=== PATIENT | male | born 1960 | race African-American/Black ===

== ENCOUNTER 2017-02-20 03:04 | Inpatient (IN) | payer MEDICARE, MEDICAID ==
[~2017-02-20] VITALS: Ht 121.9 cm; Wt 97.6 kg
[~2017-02-20 03:04] MED LIST: ASPI81CH43 PO; B-CO-6; BACL10TA; CALC667C; CAR3125T PO; DOCU-137; ENAL-3; HYDR2TAB58 PO; LEVAAER4; LORA2TAB10 PO; OMEP20TA34; PROVENTIL INH; SEVE800T8 PO; SIMV20TA90 PO; THEO300T5 PO; TIZANDINE PO
[2017-02-20] MEDS ORDERED: BACLOFEN 10 MG TAB PO PRN (09:15)
[2017-02-20] MEDS ORDERED: ALBUTEROL SULF 2.5 MG/0.5ML(0.5%) NEB SOLN NEB PRN (09:15)
[2017-02-20] MEDS ORDERED: DEXTROSE (50%) 50ML SYRG IV PRN (09:15)
[2017-02-20] MEDS ORDERED: ACETAMINOPHEN 500 MG TAB PO PRN (09:15)
[2017-02-20] MEDS ORDERED: NITROGLYCERIN 0.4 MG SL TAB SL PRN (09:15)
[2017-02-20] MEDS ORDERED: HYDROmorphone HCL 2 MG TAB PO PRN (09:15)
[2017-02-20] MEDS ORDERED: PROMETHAZINE HCL 25 MG/ML 1ML IV PRN (09:15)
[2017-02-20] MEDS ORDERED: MORPHINE SULF INJ 2 MG/ML SYRINGE 1ML IV PRN ×2 (09:15)
[2017-02-20] MEDS ORDERED: TEMAZEPAM 15 MG CAP PO PRN (09:15)
[2017-02-20] MEDS ORDERED: MORPHINE SULFATE 4 MG/ML SYR/VIAL IV PRN (09:15)
[2017-02-20] MEDS ORDERED: MORPHINE SULFATE 10 MG/ML INJ 1ML SDV IV PRN (09:45)
[2017-02-20] MEDS ORDERED: ENALAPRIL MALEATE 2.5 MG TAB PO SCH (10:00)
[2017-02-20] MEDS: ASPirin 81 mg TAB PO SCH ×2 (10:00→10:30)
[2017-02-20] MEDS: DOCUSATE SOD 100 MG CAP PO SCH ×2 (10:00→22:08)
[2017-02-20] MEDS: THEOPHYLLINE 300 MG PO SCH ×2 (10:00→22:00)
[2017-02-20] MEDS ORDERED: PATIENTS OWN MEDICATION (Sevelamer Carbonate (Renvela) 800 MG) PO SCH (10:00)
[2017-02-20 10:01] LABS: Hematocrit 24.7 % (41.0-53.0); Hemoglobin 7.7 g/dL (13.5-17.5); Mean Corpuscular Hemoglobin 30.2 pg (28.0-32.0); Mean Corpuscular Hgb Conc. 31.2 g/dL (32.0-36.0); Mean Corpuscular Volume 96.8 fL (80.0-100.0); Platelet Count (auto) 164 10^3/uL (140-450); Red Blood Cells 2.55 10^6/uL (4.5-5.90); Red Cell Distribution Width 18.3 % (11.8-14.3); White Blood Cell 5.1 10^3/uL (4.4-10.8)
[2017-02-20 10:06] LABS: Band Neutrophils % (manual) 0; Basophils % (manual) 0 (0.0-2.0); Blast Cells 0; Metamyelocytes % 0; Myelocytes % 0; Promyelocytes % 0; Reactive Lymphocytes 0
[2017-02-20] MEDS: PANTOPRAZOLE 40 MG TAB PO SCH (10:30)
[2017-02-20] MEDS: CARVEDILOL 3.125 MG TAB PO SCH ×2 (10:30→22:09)
[2017-02-20] MEDS: FUROSEMIDE 40 MG/4 ML VIAL IV SCH (10:30)
[2017-02-20] MEDS: SEVELAMER 800 MG TAB PO SCH (10:30)
[2017-02-20 10:38] LABS: Albumin 2.8 g/dL (3.4-5.0); BUN/Creatinine Ratio 5.1; Bilirubin, Total 1.1 mg/dL (0.2-1.0); Calcium 8.3 mg/dL (8.5-10.1); Magnesium 2.9 mg/dL (1.6-2.6); Potassium 3.8 mmol/L (3.5-5.1); Total Protein 8.9 g/dL (6.4-8.2)
[2017-02-20] MEDS: ACCU-CHEK COMFORT CURVE STRIP VI SCH ×3 (11:06→22:09)
[2017-02-20 11:08] LABS: Eosinophils % (manual) 3 (0-7); Lymphocytes % (manual) 15 (10.0-50.0); Monocytes % (manual) 10 (0-12)
[2017-02-20 11:09] LABS: INR 1.51 (0.9-1.15); Partial Thromboplastin Time 35.2 sec (22.64-33.71); Prothrombin Time 16.5 sec (9.37-12.3)
[2017-02-20] MEDS: InsuLIN REG 1unit/0.01ml Soln (100units/ml) SC SCH ×3 (11:30→22:10)
[2017-02-20] MEDS: CALCIUM ACETATE 667 MG CAP PO SCH ×2 (12:01→17:49)
[2017-02-20] MEDS: ALBUTEROL SULF 2.5 MG/0.5ML(0.5%) NEB SOLN NEB SCH ×2 (12:50→19:17)
[2017-02-20 13:16] LABS: Folate (Folic Acid) 12.89 ng/mL (5.38-24)
[2017-02-20 13:28] VITALS: BP 85/50
[2017-02-20] MEDS: TIZANIDINE PO SCH ×2 (14:00→22:00)
[2017-02-20] MEDS: [UNRECOGNIZED DRUG - OTHER] PO SCH ×2 (14:00→22:00)
[2017-02-20] MEDS ORDERED: AMOX-263 PO (18:08)
[2017-02-20] MEDS ORDERED: GABA300C10 PO (18:08)
[2017-02-20 18:16] VITALS: BP 110/60
[2017-02-20] MEDS: LORazepam 0.5 MG TAB PO PRN (18:30)
[2017-02-20 18:42] VITALS: BP 125/72
[2017-02-20 22:00] VITALS: BP 112/59
[2017-02-20] MEDS: ATORVASTATIN 20 MG TAB PO SCH (22:09)
[2017-02-20 22:10] VITALS: BP 107/67
[2017-02-21] MEDS: ALBUTEROL SULF 2.5 MG/0.5ML(0.5%) NEB SOLN NEB SCH ×4 (00:01→19:52)
[2017-02-21] MEDS: LORazepam 0.5 MG TAB PO PRN (00:16)
[2017-02-21 05:00] VITALS: BP 96/57
[2017-02-21 05:27] LABS: Basophils # (auto) 0.1 uL; Monocytes # (auto) 0.7 uL
[2017-02-21 05:29] LABS: Basophils % (auto) 2.5 % (0.0-2.0); Eosinophils # (auto) 0.1 uL; Eosinophils % (auto) 2.7 % (0.0-7.0); Hematocrit 23.8 % (41.0-53.0); Hemoglobin 7.8 g/dL (13.5-17.5); Lymphocytes # (auto) 0.8 uL; Lymphocytes % (auto) 14.2 % (10.0-50.0); Mean Corpuscular Hemoglobin 30.3 pg (28.0-32.0); Mean Corpuscular Hgb Conc. 32.9 g/dL (32.0-36.0); Mean Corpuscular Volume 92.3 fL (80.0-100.0); Monocytes % (auto) 11.9 % (0.0-12.0); Neutrophils # (auto) 3.8 uL; Neutrophils % (auto) 68.7 % (37.0-80.0); Platelet Count (auto) 159 10^3/uL (140-450); Red Blood Cells 2.58 10^6/uL (4.5-5.90); Red Cell Distribution Width 18.8 % (11.8-14.3); White Blood Cell 5.5 10^3/uL (4.4-10.8)
[2017-02-21] MEDS: [UNRECOGNIZED DRUG - OTHER] PO SCH ×3 (05:34→22:00)
[2017-02-21] MEDS: TIZANIDINE PO SCH ×3 (05:34→22:00)
[2017-02-21 05:50] LABS: Albumin 2.7 g/dL (3.4-5.0); BUN/Creatinine Ratio 5.2; Calcium 8.2 mg/dL (8.5-10.1); Potassium 4.3 mmol/L (3.5-5.1); Total Protein 8.7 g/dL (6.4-8.2)
[2017-02-21] MEDS: InsuLIN REG 1unit/0.01ml Soln (100units/ml) SC SCH ×4 (06:35→22:00)
[2017-02-21] MEDS: ACCU-CHEK COMFORT CURVE STRIP VI SCH ×4 (06:36→22:00)
[2017-02-21 08:00] VITALS: BP 93/54
[2017-02-21] MEDS: CALCIUM ACETATE 667 MG CAP PO SCH ×3 (08:00→18:22)
[2017-02-21] MEDS ORDERED: SODIUM CHL 0.9% 1000 ML BAG XX ONE (08:45)
[2017-02-21] MEDS ORDERED: EPOETIN ALFA 10,000 UNIT/1 ML VIAL IV ONE (08:45)
[2017-02-21 09:59] LABS: Albumin 2.7 g/dL (3.4-5.0); Bilirubin, Direct 0.5 mg/dL (0-0.2); Total Protein 8.7 g/dL (6.4-8.2)
[2017-02-21] MEDS: ASPirin 81 mg TAB PO SCH (10:00)
[2017-02-21] MEDS: FUROSEMIDE 40 MG/4 ML VIAL IV SCH (10:00)
[2017-02-21] MEDS: DOCUSATE SOD 100 MG CAP PO SCH ×2 (10:00→22:45)
[2017-02-21] MEDS: THEOPHYLLINE 300 MG PO SCH ×2 (10:00→22:00)
[2017-02-21] MEDS: CARVEDILOL 3.125 MG TAB PO SCH ×2 (10:00→22:46)
[2017-02-21] MEDS: PANTOPRAZOLE 40 MG TAB PO SCH (12:04)
[2017-02-21] MEDS: SEVELAMER 800 MG TAB PO SCH (12:04)
[2017-02-21 13:00] VITALS: BP 106/60
[2017-02-21 17:00] VITALS: BP 98/35
[2017-02-21] MEDS: B-COMPLEX W/ C & FOLIC ACID(NEPHROVITE TAB) PO SCH (18:21)
[2017-02-21 20:00] VITALS: BP 118/68
[2017-02-21] MEDS: HYDROmorphone HCL 2 MG/ML VL IV PRN (21:10)
[2017-02-21] MEDS: ASCORBIC ACID 500 MG TAB PO SCH (22:45)
[2017-02-21] MEDS: ATORVASTATIN 20 MG TAB PO SCH (22:45)
[2017-02-22] MEDS: HYDROmorphone HCL 2 MG/ML VL IV PRN ×4 (01:10→22:13)
[2017-02-22] MEDS: ALBUTEROL SULF 2.5 MG/0.5ML(0.5%) NEB SOLN NEB SCH ×4 (01:14→19:42)
[2017-02-22 04:58] VITALS: BP 94/65
[2017-02-22] MEDS: [UNRECOGNIZED DRUG - OTHER] PO SCH ×3 (06:00→22:00)
[2017-02-22] MEDS: TIZANIDINE PO SCH ×3 (06:00→22:00)
[2017-02-22] MEDS: InsuLIN REG 1unit/0.01ml Soln (100units/ml) SC SCH ×4 (07:00→22:00)
[2017-02-22] MEDS: ACCU-CHEK COMFORT CURVE STRIP VI SCH ×4 (07:16→22:00)
[2017-02-22] MEDS: CALCIUM ACETATE 667 MG CAP PO SCH ×3 (08:00→17:56)
[2017-02-22 09:00] VITALS: BP 103/52
[2017-02-22] MEDS: FUROSEMIDE 40 MG/4 ML VIAL IV SCH (10:00)
[2017-02-22] MEDS: THEOPHYLLINE 300 MG PO SCH ×2 (10:00→22:00)
[2017-02-22] MEDS: CARVEDILOL 3.125 MG TAB PO SCH ×2 (10:00→22:00)
[2017-02-22] MEDS: DOCUSATE SOD 100 MG CAP PO SCH ×2 (11:53→22:13)
[2017-02-22] MEDS: ASPirin 81 mg TAB PO SCH (11:53)
[2017-02-22] MEDS: B-COMPLEX W/ C & FOLIC ACID(NEPHROVITE TAB) PO SCH (11:54)
[2017-02-22] MEDS: PANTOPRAZOLE 40 MG TAB PO SCH (11:54)
[2017-02-22] MEDS: SEVELAMER 800 MG TAB PO SCH (11:55)
[2017-02-22] MEDS: ASCORBIC ACID 500 MG TAB PO SCH ×2 (11:55→22:13)
[2017-02-22 13:00] VITALS: BP 79/43
[2017-02-22 18:22] VITALS: BP 95/62
[2017-02-22 20:00] VITALS: BP 93/53
[2017-02-22 22:00] VITALS: BP 93/53
[2017-02-22] MEDS: ATORVASTATIN 20 MG TAB PO SCH (22:13)
[2017-02-23] VITALS (9 sets, daily range): BP systolic 77–117; BP diastolic 47–70
[2017-02-23] MEDS: ALBUTEROL SULF 2.5 MG/0.5ML(0.5%) NEB SOLN NEB SCH ×4 (00:22→19:11)
[2017-02-23] MEDS: HYDROmorphone HCL 2 MG/ML VL IV PRN ×6 (02:01→23:31)
[2017-02-23] MEDS: [UNRECOGNIZED DRUG - OTHER] PO SCH ×3 (06:00→22:00)
[2017-02-23] MEDS: TIZANIDINE PO SCH ×3 (06:00→22:00)
[2017-02-23] MEDS: InsuLIN REG 1unit/0.01ml Soln (100units/ml) SC SCH ×4 (07:00→22:00)
[2017-02-23] MEDS: ACCU-CHEK COMFORT CURVE STRIP VI SCH ×4 (07:00→22:00)
[2017-02-23] MEDS: CALCIUM ACETATE 667 MG CAP PO SCH ×3 (09:29→18:29)
[2017-02-23] MEDS ORDERED: ADENOSINE 78 MG in GIVE UN-DILUTED 0 ML IV ONE (09:45)
[2017-02-23] MEDS: THEOPHYLLINE 300 MG PO SCH ×2 (10:00→22:00)
[2017-02-23] MEDS: CARVEDILOL 3.125 MG TAB PO SCH ×2 (10:00→22:00)
[2017-02-23] MEDS: FUROSEMIDE 40 MG/4 ML VIAL IV SCH (10:00)
[2017-02-23] MEDS: DOCUSATE SOD 100 MG CAP PO SCH ×2 (10:00→22:51)
[2017-02-23] MEDS: SEVELAMER 800 MG TAB PO SCH (14:17)
[2017-02-23] MEDS: ASPirin 81 mg TAB PO SCH (14:18)
[2017-02-23] MEDS: PANTOPRAZOLE 40 MG TAB PO SCH (14:18)
[2017-02-23] MEDS: ASCORBIC ACID 500 MG TAB PO SCH ×2 (14:18→22:51)
[2017-02-23] MEDS: B-COMPLEX W/ C & FOLIC ACID(NEPHROVITE TAB) PO SCH (14:23)
[2017-02-23] MEDS ORDERED: diphenhdrAMINE HCL 50 MG/1 ML VL IV ONE (17:00)
[2017-02-23] MEDS: LORazepam 0.5 MG TAB PO PRN (19:58)
[2017-02-23] MEDS: diphenhdrAMINE HCL 50 MG/1 ML VL IV PRN (21:33)
[2017-02-23] MEDS: ATORVASTATIN 20 MG TAB PO SCH (22:51)
[2017-02-24] MEDS: ALBUTEROL SULF 2.5 MG/0.5ML(0.5%) NEB SOLN NEB SCH ×4 (00:31→18:00)
[2017-02-24] MEDS: HYDROmorphone HCL 2 MG/ML VL IV PRN ×3 (04:29→20:45)
[2017-02-24 05:07] VITALS: BP 94/58
[2017-02-24] MEDS: [UNRECOGNIZED DRUG - OTHER] PO SCH ×3 (06:00→22:00)
[2017-02-24] MEDS: TIZANIDINE PO SCH ×3 (06:00→22:00)
[2017-02-24] MEDS: ACCU-CHEK COMFORT CURVE STRIP VI SCH ×4 (07:00→22:20)
[2017-02-24] MEDS: InsuLIN REG 1unit/0.01ml Soln (100units/ml) SC SCH ×4 (07:00→22:00)
[2017-02-24 08:00] VITALS: BP 90/60
[2017-02-24 08:50] VITALS: BP 90/59
[2017-02-24] MEDS: CALCIUM ACETATE 667 MG CAP PO SCH ×3 (09:13→18:00)
[2017-02-24] MEDS: THEOPHYLLINE 300 MG PO SCH ×2 (10:00→22:00)
[2017-02-24] MEDS: CARVEDILOL 3.125 MG TAB PO SCH ×2 (10:00→22:19)
[2017-02-24] MEDS: B-COMPLEX W/ C & FOLIC ACID(NEPHROVITE TAB) PO SCH (10:47)
[2017-02-24] MEDS: SEVELAMER 800 MG TAB PO SCH (10:47)
[2017-02-24] MEDS: PANTOPRAZOLE 40 MG TAB PO SCH (10:48)
[2017-02-24] MEDS: DOCUSATE SOD 100 MG CAP PO SCH ×2 (10:48→22:00)
[2017-02-24] MEDS: ASCORBIC ACID 500 MG TAB PO SCH ×2 (10:48→22:20)
[2017-02-24] MEDS: ASPirin 81 mg TAB PO SCH (10:48)
[2017-02-24] MEDS: FUROSEMIDE 40 MG/4 ML VIAL IV SCH (10:49)
[2017-02-24] MEDS ORDERED: EPOETIN ALFA 10,000 UNIT/1 ML VIAL IV ONE (12:00)
[2017-02-24] MEDS ORDERED: SODIUM CHL 0.9% 1000 ML BAG XX ONE (12:00)
[2017-02-24 13:00] VITALS: BP 116/70
[2017-02-24 17:00] VITALS: BP 113/74
[2017-02-24 22:00] VITALS: BP 97/64
[2017-02-24] MEDS: ATORVASTATIN 20 MG TAB PO SCH (22:19)
[2017-02-25] MEDS: ALBUTEROL SULF 2.5 MG/0.5ML(0.5%) NEB SOLN NEB SCH ×4 (00:39→19:39)
[2017-02-25] MEDS: HYDROmorphone HCL 2 MG/ML VL IV PRN ×5 (01:09→22:31)
[2017-02-25 05:00] VITALS: BP 103/61
[2017-02-25] MEDS: [UNRECOGNIZED DRUG - OTHER] PO SCH ×3 (05:23→22:00)
[2017-02-25] MEDS: TIZANIDINE PO SCH ×3 (05:23→22:00)
[2017-02-25] MEDS: InsuLIN REG 1unit/0.01ml Soln (100units/ml) SC SCH ×4 (05:24→22:00)
[2017-02-25] MEDS: ACCU-CHEK COMFORT CURVE STRIP VI SCH ×4 (05:24→22:31)
[2017-02-25 08:00] VITALS: BP 86/53
[2017-02-25] MEDS: CALCIUM ACETATE 667 MG CAP PO SCH ×3 (08:07→19:36)
[2017-02-25 09:00] VITALS: BP 87/55
[2017-02-25] MEDS: DOCUSATE SOD 100 MG CAP PO SCH ×2 (10:00→22:30)
[2017-02-25] MEDS: THEOPHYLLINE 300 MG PO SCH ×2 (10:00→22:00)
[2017-02-25] MEDS: SEVELAMER 800 MG TAB PO SCH (10:44)
[2017-02-25] MEDS: ASPirin 81 mg TAB PO SCH (10:44)
[2017-02-25] MEDS: ASCORBIC ACID 500 MG TAB PO SCH ×2 (10:44→22:31)
[2017-02-25] MEDS: B-COMPLEX W/ C & FOLIC ACID(NEPHROVITE TAB) PO SCH (10:44)
[2017-02-25] MEDS: PANTOPRAZOLE 40 MG TAB PO SCH (10:44)
[2017-02-25] MEDS: FUROSEMIDE 40 MG/4 ML VIAL IV SCH (10:47)
[2017-02-25] MEDS: CARVEDILOL 3.125 MG TAB PO SCH ×2 (10:53→22:00)
[2017-02-25 13:00] VITALS: BP 111/62
[2017-02-25 16:31] VITALS: BP 103/64
[2017-02-25] MEDS ORDERED: EPOETIN ALFA 10,000 UNIT/1 ML VIAL IV ONE (17:45)
[2017-02-25] MEDS ORDERED: SODIUM CHL 0.9% 1000 ML BAG XX ONE (17:45)
[2017-02-25] MEDS ORDERED: traMADol HCL 50 MG TAB PO PRN (18:15)
[2017-02-25 22:00] VITALS: BP 117/68
[2017-02-25] MEDS: ATORVASTATIN 20 MG TAB PO SCH (22:30)
[2017-02-26] VITALS (7 sets, daily range): BP systolic 87–117; BP diastolic 53–69
[2017-02-26] MEDS: ALBUTEROL SULF 2.5 MG/0.5ML(0.5%) NEB SOLN NEB SCH ×3 (01:03→20:54)
[2017-02-26] MEDS: HYDROmorphone HCL 2 MG/ML VL IV PRN ×4 (02:41→19:47)
[2017-02-26] MEDS: [UNRECOGNIZED DRUG - OTHER] PO SCH ×3 (06:00→22:00)
[2017-02-26] MEDS: TIZANIDINE PO SCH ×3 (06:00→22:00)
[2017-02-26] MEDS: InsuLIN REG 1unit/0.01ml Soln (100units/ml) SC SCH ×4 (06:09→22:00)
[2017-02-26] MEDS: ACCU-CHEK COMFORT CURVE STRIP VI SCH ×4 (06:10→22:19)
[2017-02-26] MEDS: CALCIUM ACETATE 667 MG CAP PO SCH ×3 (08:19→17:55)
[2017-02-26] MEDS: CARVEDILOL 3.125 MG TAB PO SCH ×2 (10:00→22:00)
[2017-02-26] MEDS: THEOPHYLLINE 300 MG PO SCH ×2 (10:00→22:00)
[2017-02-26] MEDS: FUROSEMIDE 40 MG/4 ML VIAL IV SCH (10:00)
[2017-02-26] MEDS ORDERED: ALBUMIN 25% 100 ML IV PRN (10:45)
[2017-02-26] MEDS: B-COMPLEX W/ C & FOLIC ACID(NEPHROVITE TAB) PO SCH (15:51)
[2017-02-26] MEDS: SEVELAMER 800 MG TAB PO SCH (15:51)
[2017-02-26] MEDS: PANTOPRAZOLE 40 MG TAB PO SCH (15:51)
[2017-02-26] MEDS: ASCORBIC ACID 500 MG TAB PO SCH ×2 (15:52→22:18)
[2017-02-26] MEDS: ASPirin 81 mg TAB PO SCH (15:54)
[2017-02-26] MEDS: DOCUSATE SOD 100 MG CAP PO SCH ×2 (15:56→22:00)
[2017-02-26] MEDS: ATORVASTATIN 20 MG TAB PO SCH (22:18)
[2017-02-26] MEDS: diphenhdrAMINE HCL 50 MG/1 ML VL IV PRN (22:56)
[2017-02-27] MEDS: HYDROmorphone HCL 2 MG/ML VL IV PRN ×4 (00:03→13:20)
[2017-02-27] MEDS: ALBUTEROL SULF 2.5 MG/0.5ML(0.5%) NEB SOLN NEB SCH ×3 (01:34→11:59)
[2017-02-27] MEDS: [UNRECOGNIZED DRUG - OTHER] PO SCH ×2 (05:33→14:00)
[2017-02-27] MEDS: TIZANIDINE PO SCH ×2 (05:33→14:00)
[2017-02-27 05:42] VITALS: BP 101/64
[2017-02-27] MEDS: InsuLIN REG 1unit/0.01ml Soln (100units/ml) SC SCH ×3 (05:58→17:00)
[2017-02-27] MEDS: ACCU-CHEK COMFORT CURVE STRIP VI SCH ×3 (05:59→17:00)
[2017-02-27] MEDS: SEVELAMER 800 MG TAB PO SCH (08:54)
[2017-02-27] MEDS: FUROSEMIDE 40 MG/4 ML VIAL IV SCH (08:54)
[2017-02-27] MEDS: THEOPHYLLINE 300 MG PO SCH (08:54)
[2017-02-27] MEDS: CALCIUM ACETATE 667 MG CAP PO SCH ×2 (08:54→11:45)
[2017-02-27] MEDS: PANTOPRAZOLE 40 MG TAB PO SCH (08:54)
[2017-02-27] MEDS: ASCORBIC ACID 500 MG TAB PO SCH (08:54)
[2017-02-27] MEDS: ASPirin 81 mg TAB PO SCH (08:55)
[2017-02-27] MEDS: CARVEDILOL 3.125 MG TAB PO SCH (08:55)
[2017-02-27] MEDS: DOCUSATE SOD 100 MG CAP PO SCH (08:55)
[2017-02-27 09:00] VITALS: BP 96/52
[2017-02-27] MEDS: B-COMPLEX W/ C & FOLIC ACID(NEPHROVITE TAB) PO SCH (09:16)
[2017-02-27 13:00] VITALS: BP 101/66
[2017-02-27 17:53] VITALS: BP 121/71
[2017-02-28] MEDS ORDERED: SODIUM CHL 0.9% 1000 ML BAG XX ONE (08:00)
[2017-02-28] MEDS ORDERED: EPOETIN ALFA 10,000 UNIT/1 ML VIAL IV ONE (08:00)
== END 2017-02-27 18:05 | disposition home or self-care (01) | DRG 291 ==
LOC: ER 03:04 → EDBD 03:04 → TELE 03:05 → TELE-WESTW 17:24
PROVIDERS: ADMIT Internal Medicine; ATTEND Internal Medicine Pulmonary Disease
PROC: 30233N1 Transfusion of Nonautologous Red Blood Cells into Peripheral Vein, Percutaneous Approach (ICD-10-PCS; 2017-02-20)
PROC: 5A09357 Assistance with Respiratory Ventilation, Less than 24 Consecutive Hours, Continuous Positive Airway Pressure (ICD-10-PCS; principal; 2017-02-21)
PROC: 5A1D70Z Performance of Urinary Filtration, Intermittent, Less than 6 Hours Per Day (ICD-10-PCS; 2017-02-21)
PROC: 5A09357 Assistance with Respiratory Ventilation, Less than 24 Consecutive Hours, Continuous Positive Airway Pressure (ICD-10-PCS; 2017-02-22)
PROC: 5A09357 Assistance with Respiratory Ventilation, Less than 24 Consecutive Hours, Continuous Positive Airway Pressure (ICD-10-PCS; 2017-02-23)
PROC: 5A1D70Z Performance of Urinary Filtration, Intermittent, Less than 6 Hours Per Day (ICD-10-PCS; 2017-02-24)
PROC: 5A09357 Assistance with Respiratory Ventilation, Less than 24 Consecutive Hours, Continuous Positive Airway Pressure (ICD-10-PCS; 2017-02-25)
PROC: 5A09357 Assistance with Respiratory Ventilation, Less than 24 Consecutive Hours, Continuous Positive Airway Pressure (ICD-10-PCS; 2017-02-26)
PROC: 5A1D70Z Performance of Urinary Filtration, Intermittent, Less than 6 Hours Per Day (ICD-10-PCS; 2017-02-26)
PROC: 5A09357 Assistance with Respiratory Ventilation, Less than 24 Consecutive Hours, Continuous Positive Airway Pressure (ICD-10-PCS; 2017-02-27)
DX: I13.2 Hypertensive heart and chronic kidney disease with heart failure and with stage 5 chronic kidney disease, or end stage renal disease (principal); N18.6 End stage renal disease; E11.22 Type 2 diabetes mellitus with diabetic chronic kidney disease; E11.40 Type 2 diabetes mellitus with diabetic neuropathy, unspecified; E46 Unspecified protein-calorie malnutrition; E87.1 Hypo-osmolality and hyponatremia; Z68.44 Body mass index [BMI] 60.0-69.9, adult; E11.51 Type 2 diabetes mellitus with diabetic peripheral angiopathy without gangrene; I50.9 Heart failure, unspecified; D64.9 Anemia, unspecified; J44.9 Chronic obstructive pulmonary disease, unspecified; E11.649 Type 2 diabetes mellitus with hypoglycemia without coma; E78.5 Hyperlipidemia, unspecified; F03.90 Unspecified dementia, unspecified severity, without behavioral disturbance, psychotic disturbance, mood disturbance, and anxiety; Z51.5 Encounter for palliative care; F17.210 Nicotine dependence, cigarettes, uncomplicated; F25.9 Schizoaffective disorder, unspecified; E66.9 Obesity, unspecified; K21.9 Gastro-esophageal reflux disease without esophagitis; F31.9 Bipolar disorder, unspecified; G47.33 Obstructive sleep apnea (adult) (pediatric); H91.90 Unspecified hearing loss, unspecified ear; I25.2 Old myocardial infarction; Z99.2 Dependence on renal dialysis; Z79.899 Other long term (current) drug therapy; Z82.49 Family history of ischemic heart disease and other diseases of the circulatory system; Z83.3 Family history of diabetes mellitus; Z89.511 Acquired absence of right leg below knee; Z89.512 Acquired absence of left leg below knee; Z89.611 Acquired absence of right leg above knee; Z90.49 Acquired absence of other specified parts of digestive tract; Z79.82 Long term (current) use of aspirin; Z88.5 Allergy status to narcotic agent
CPT/HCPCS: 36415; 70450; 71045; 78452; 80053; 80061; 80076; 82550; 82607; 82746; 82962; 83036; 83605; 83735; 83880; 84443; 84484; 85007; 85025; 85027; 85610; 85652; 85730; 86850; 86870; 86900; 86901; 86902; 86920; 86922; 87040; 87081; 87493; 90935; 93005; 93017; 93306; 93886; 94640; 94660; 94761; J0153; J0885; J1642; J1815

== ENCOUNTER 2017-08-01 21:47 | Inpatient (IN) | payer MEDICARE, MEDICAID ==
[~2017-08-01] VITALS: Ht 152.4 cm; Wt 111.5 kg
[~2017-08-01 21:47] MED LIST changes: +GABA300C10 PO
[2017-08-01] MEDS ORDERED: ACETAMINOPHEN 650 MG RECT SUPP PR ONE ×2 (22:04→23:00)
[2017-08-01 23:13] LABS: Basophils # (auto) 0 uL; Basophils % (auto) 1.1 % (0.0-2.0); Eosinophils # (auto) 0 uL; Eosinophils % (auto) 1.1 % (0.0-7.0); Hemoglobin 8.5 g/dL (13.5-17.5); Lymphocytes # (auto) 0.7 uL; Lymphocytes % (auto) 18.1 % (10.0-50.0); Mean Corpuscular Hemoglobin 33.1 pg (28.0-32.0); Mean Corpuscular Hgb Conc. 32.9 g/dL (32.0-36.0); Mean Corpuscular Volume 100.8 fL (80.0-100.0); Monocytes # (auto) 0.2 uL; Monocytes % (auto) 4.7 % (0.0-12.0); Neutrophils # (auto) 2.9 uL; Platelet Count (auto) 97 10^3/uL (140-450); Red Blood Cells 2.58 10^6/uL (4.5-5.90); Red Cell Distribution Width 16.1 % (11.8-14.3); White Blood Cell 3.9 10^3/uL (4.4-10.8)
[2017-08-01 23:22] LABS: INR 1.52 (0.9-1.15); Partial Thromboplastin Time 30.8 sec (23.78-33.04); Prothrombin Time 15.9 sec (9.27-12.13)
[2017-08-01 23:28] LABS: Alanine Aminotransferase 10 U/L (16-61); Albumin 2.8 g/dL (3.4-5.0); Alkaline Phosphatase 79 U/L (45-117); Anion Gap 11 (5-15); Aspartate Aminotransferase 26 U/L (15-37); BUN/Creatinine Ratio 3.1; Bilirubin, Total 1.7 mg/dL (0.2-1.0); Blood Alcohol < 3.0 mg/dL (0-5); Blood Urea Nitrogen 14 mg/dL (7-18); Calcium 8.2 mg/dL (8.5-10.1); Carbon Dioxide 29 mmol/L (21-32); Chloride 93 mmol/L (98-107); GFR African American 17 mL/min; GFR Non-African American 14 mL/min; Glucose 100 mg/dL (74-106); Magnesium 2.5 mg/dL (1.6-2.6); Potassium 3.5 mmol/L (3.5-5.1); Sodium 133 mmol/L (136-145); Total Protein 8.6 g/dL (6.4-8.2)
[2017-08-02] MEDS ORDERED: SODIUM CHLORIDE 0.9% 1,000 ML IV ONE (00:45)
[2017-08-02] MEDS ORDERED: ALBUTEROL SULF 2.5 MG/0.5ML(0.5%) NEB SOLN NEB PRN (05:15)
[2017-08-02] MEDS ORDERED: HYDROcodone-ACET 5/325MG TAB PO PRN (05:45)
[2017-08-02] MEDS ORDERED: DEXTROSE (50%) 50ML SYRG IV PRN (05:45)
[2017-08-02] MEDS ORDERED: LACTULOSE 20Gm/30ML SOLN PO ONE (06:00)
[2017-08-02] MEDS ORDERED: LORazepam 0.5 MG TAB PO PRN (06:15)
[2017-08-02] MEDS: IPRATROPIUM BROM 0.5 MG/2.5ML INH SOL NEB SCH ×5 (06:55→23:58)
[2017-08-02] MEDS: ALBUTEROL SULF 2.5 MG/0.5ML(0.5%) NEB SOLN NEB SCH ×4 (06:55→23:58)
[2017-08-02] MEDS: SEVELAMER 800 MG TAB PO SCH ×3 (08:00→18:00)
[2017-08-02] MEDS: ACCU-CHEK COMFORT CURVE STRIP VI SCH ×4 (08:17→22:10)
[2017-08-02] MEDS: InsuLIN REG 1unit/0.01ml Soln (100units/ml) SC SCH ×4 (08:17→22:00)
[2017-08-02 08:19] LABS: Basophils # (auto) 0 uL; Basophils % (auto) 0.8 % (0.0-2.0); Eosinophils # (auto) 0 uL; Hematocrit 24.7 % (41.0-53.0); Hemoglobin 8.1 g/dL (13.5-17.5); Lymphocytes # (auto) 0.7 uL; Lymphocytes % (auto) 15.9 % (10.0-50.0); Mean Corpuscular Hemoglobin 33.3 pg (28.0-32.0); Mean Corpuscular Hgb Conc. 32.9 g/dL (32.0-36.0); Mean Corpuscular Volume 101.4 fL (80.0-100.0); Monocytes # (auto) 0.3 uL; Monocytes % (auto) 7.1 % (0.0-12.0); Neutrophils # (auto) 3.2 uL; Neutrophils % (auto) 75.2 % (37.0-80.0); Nucleated Red Blood Cells % 0.2 %; Platelet Count (auto) 91 10^3/uL (140-450); Red Blood Cells 2.43 10^6/uL (4.5-5.90); Red Cell Distribution Width 16.6 % (11.8-14.3); White Blood Cell 4.3 10^3/uL (4.4-10.8)
[2017-08-02 08:26] LABS: Albumin 2.7 g/dL (3.4-5.0); BUN/Creatinine Ratio 3.2; Bilirubin, Total 1.7 mg/dL (0.2-1.0); Calcium 8.2 mg/dL (8.5-10.1); Potassium 3.6 mmol/L (3.5-5.1); Total Protein 8.2 g/dL (6.4-8.2)
[2017-08-02] MEDS: LEVETIRACETAM 500 MG TAB PO SCH ×2 (10:00→22:00)
[2017-08-02] MEDS: amLODIPine BESYLATE 5 MG TAB PO SCH (10:00)
[2017-08-02] MEDS: METOPROLOL SUCCINATE XL 50 MG TAB PO SCH (10:00)
[2017-08-02 10:42] VITALS: BP 86/49
[2017-08-02 11:13] VITALS: BP 86/49
[2017-08-02] MEDS: ASPirin-EC 81 mg tab PO SCH (12:09)
[2017-08-02] MEDS: GABAPENTIN 300 MG CAP PO SCH (12:10)
[2017-08-02 13:00] VITALS: BP 87/61
[2017-08-02] MEDS ORDERED: ROPI4TAB26 PO (13:42)
[2017-08-02] MEDS: ONDANSETRON HCL 4 MG/2 ML VIAL IV PRN ×2 (14:03→20:03)
[2017-08-02 17:18] VITALS: BP 95/57
[2017-08-02] MEDS ORDERED: VANCOMYCIN PER PHARMACY 0 MG IV SCH (20:00)
[2017-08-02] MEDS ORDERED: VANCOMYCIN 1GM/250ML 250 ML IV ONE (21:00)
[2017-08-02 22:00] VITALS: BP 112/59
[2017-08-02] MEDS: ATORVASTATIN 20 MG TAB PO SCH (23:31)
[2017-08-02] MEDS: PIPERACILLIN-TAZOB 2.25GM 50 ML IV SCH (23:31)
[2017-08-03] MEDS: ONDANSETRON HCL 4 MG/2 ML VIAL IV PRN ×4 (00:37→23:56)
[2017-08-03 05:00] VITALS: BP 116/79
[2017-08-03 05:56] LABS: Basophils # (auto) 0 uL; Basophils % (auto) 0.4 % (0.0-2.0); Eosinophils # (auto) 0.1 uL; Eosinophils % (auto) 1.5 % (0.0-7.0); Mean Corpuscular Hemoglobin 34.5 pg (28.0-32.0); Monocytes # (auto) 0.2 uL; Neutrophils # (auto) 2.6 uL; White Blood Cell 3.4 10^3/uL (4.4-10.8)
[2017-08-03 05:57] LABS: Hematocrit 23.5 % (41.0-53.0); Hemoglobin 7.9 g/dL (13.5-17.5); Lymphocytes # (auto) 0.4 uL; Lymphocytes % (auto) 12.5 % (10.0-50.0); Mean Corpuscular Hgb Conc. 33.8 g/dL (32.0-36.0); Mean Corpuscular Volume 102.2 fL (80.0-100.0); Monocytes % (auto) 7.4 % (0.0-12.0); Neutrophils % (auto) 78.2 % (37.0-80.0); Nucleated Red Blood Cells % 0.1 %; Platelet Count (auto) 85 10^3/uL (140-450); Red Cell Distribution Width 16.3 % (11.8-14.3)
[2017-08-03 06:30] LABS: BUN/Creatinine Ratio 3.7; Calcium 8.6 mg/dL (8.5-10.1); Potassium 3.6 mmol/L (3.5-5.1)
[2017-08-03] MEDS: InsuLIN REG 1unit/0.01ml Soln (100units/ml) SC SCH ×4 (06:37→23:26)
[2017-08-03] MEDS: ACCU-CHEK COMFORT CURVE STRIP VI SCH ×4 (06:37→23:27)
[2017-08-03] MEDS ORDERED: EPOETIN ALFA 10,000 UNIT/1 ML VIAL SC ONE ×2 (07:00→08:30)
[2017-08-03] MEDS: ALBUTEROL SULF 2.5 MG/0.5ML(0.5%) NEB SOLN NEB SCH ×4 (07:08→23:41)
[2017-08-03] MEDS: SEVELAMER 800 MG TAB PO SCH ×3 (08:00→18:24)
[2017-08-03 08:30] VITALS: BP 92/59
[2017-08-03] MEDS: ASPirin-EC 81 mg tab PO SCH (09:40)
[2017-08-03] MEDS: LEVETIRACETAM 500 MG TAB PO SCH ×2 (09:40→21:37)
[2017-08-03] MEDS: amLODIPine BESYLATE 5 MG TAB PO SCH (09:40)
[2017-08-03] MEDS: PIPERACILLIN-TAZOB 2.25GM 50 ML IV SCH ×2 (09:40→22:00)
[2017-08-03] MEDS: METOPROLOL SUCCINATE XL 50 MG TAB PO SCH (09:41)
[2017-08-03] MEDS: GABAPENTIN 300 MG CAP PO SCH (09:41)
[2017-08-03] MEDS: IPRATROPIUM BROM 0.5 MG/2.5ML INH SOL NEB SCH ×3 (12:25→23:41)
[2017-08-03 13:00] VITALS: BP 103/56
[2017-08-03] MEDS ORDERED: VANCOMYCIN 1GM/250ML 250 ML IV ONE (16:00)
[2017-08-03 16:58] VITALS: BP 110/56
[2017-08-03] MEDS: ATORVASTATIN 20 MG TAB PO SCH (21:37)
[2017-08-03 22:00] VITALS: BP 109/61
[2017-08-04] MEDS ORDERED: SODIUM BICARBONATE 8.4% INJ 50ML SYRINGE ONE (05:10)
[2017-08-04 05:25] LABS: Albumin 2.7 g/dL (3.4-5.0); BUN/Creatinine Ratio 3.7; Calcium 8.4 mg/dL (8.5-10.1); Potassium 4.5 mmol/L (3.5-5.1)
[2017-08-04 05:27] LABS: Bilirubin, Total 1.4 mg/dL (0.2-1.0); Total Protein 8.6 g/dL (6.4-8.2)
[2017-08-04] MEDS ORDERED: ATROPINE SULF 1 MG/10ml SYR IV ONE (05:30)
[2017-08-04] MEDS ORDERED: SODIUM BICARBONATE 8.4% INJ 50ML SYRINGE IV ONE (05:30)
[2017-08-04] MEDS ORDERED: EPINEPHrine HCL 1 MG/10 ML SYRG IV ONE (05:30)
[2017-08-04] MEDS ORDERED: CALCIUM CHLOR(10%) 100MG/ML 10ML SYRINGE IV ONE (05:30)
[2017-08-04] MEDS ORDERED: SODIUM CHL 0.9% 1000 ML BAG XX ONE (12:00)
[2017-08-04] MEDS ORDERED: EPOETIN ALFA 10,000 UNIT/1 ML VIAL IV ONE (12:00)
== END 2017-08-04 05:31 | disposition expired | DRG 871 ==
LOC: EDBD 21:47 → ER 21:48 → TELE 21:49 → TELE-CENTR 08-02 10:02
PROVIDERS: ADMIT Nurse Practitioner Family; ATTEND Internal Medicine Pulmonary Disease
PROC: 5A1D70Z Performance of Urinary Filtration, Intermittent, Less than 6 Hours Per Day (ICD-10-PCS; 2017-08-03)
PROC: 5A09357 Assistance with Respiratory Ventilation, Less than 24 Consecutive Hours, Continuous Positive Airway Pressure (ICD-10-PCS; 2017-08-03)
PROC: 5A12012 Performance of Cardiac Output, Single, Manual (ICD-10-PCS; principal; 2017-08-04)
PROC: 5A09357 Assistance with Respiratory Ventilation, Less than 24 Consecutive Hours, Continuous Positive Airway Pressure (ICD-10-PCS; 2017-08-04)
PROC: 0BH17EZ Insertion of Endotracheal Airway into Trachea, Via Natural or Artificial Opening (ICD-10-PCS; 2017-08-04)
DX: A41.9 Sepsis, unspecified organism (principal); N18.6 End stage renal disease; E87.1 Hypo-osmolality and hyponatremia; I13.2 Hypertensive heart and chronic kidney disease with heart failure and with stage 5 chronic kidney disease, or end stage renal disease; E44.0 Moderate protein-calorie malnutrition; J98.11 Atelectasis; Z68.42 Body mass index [BMI] 45.0-49.9, adult; K80.20 Calculus of gallbladder without cholecystitis without obstruction; D64.9 Anemia, unspecified; E11.22 Type 2 diabetes mellitus with diabetic chronic kidney disease; E78.5 Hyperlipidemia, unspecified; F03.90 Unspecified dementia, unspecified severity, without behavioral disturbance, psychotic disturbance, mood disturbance, and anxiety; F17.210 Nicotine dependence, cigarettes, uncomplicated; G25.81 Restless legs syndrome; H70.11 Chronic mastoiditis, right ear; I50.9 Heart failure, unspecified; J44.9 Chronic obstructive pulmonary disease, unspecified; K21.9 Gastro-esophageal reflux disease without esophagitis; K59.00 Constipation, unspecified; M43.12 Spondylolisthesis, cervical region; M48.02 Spinal stenosis, cervical region; Z79.4 Long term (current) use of insulin; Z79.899 Other long term (current) drug therapy; Z82.49 Family history of ischemic heart disease and other diseases of the circulatory system; Z83.3 Family history of diabetes mellitus; Z89.511 Acquired absence of right leg below knee; Z89.512 Acquired absence of left leg below knee; Z99.2 Dependence on renal dialysis; Z88.8 Allergy status to other drugs, medicaments and biological substances; Z88.5 Allergy status to narcotic agent; Z90.49 Acquired absence of other specified parts of digestive tract; Z90.89 Acquired absence of other organs; I46.9 Cardiac arrest, cause unspecified
CPT/HCPCS: 36415; 36600; 70450; 71045; 72125; 74176; 80048; 80053; 80202; 80320; 82140; 82805; 82962; 83036; 83605; 83735; 84484; 85025; 85379; 85610; 85730; 87040; 87081; 93005; 94640; 94660; J0885; J1815; J2405; J2543